=== PATIENT | female | born 2005 | race African-American/Black ===

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

== ENCOUNTER 2023-08-30 10:54 | Emergency (ER) | payer OTHER ==
[2023-08-30 14:20] LABS: MONO NEGATIVE CONTROL ZONE White (Negative) (White); MONO POSITIVE CONTROL Pink Line (Positive) (PINK/RED); Mononucleosis NEGATIVE (NEGATIVE)
[2023-08-30] MEDS ORDERED: Ketorolac Tromethamine 30 MG (1 mL) VIAL ONE (14:31)
[2023-08-30] MEDS ORDERED: Bicillin LA 1.2 MILLION UNITS/2 ML SYRINGE ONE (14:31)
== END 2023-08-30 14:49 | disposition home or self-care (01) ==
LOC: ERS 10:54
DX: J02.9 Acute pharyngitis, unspecified (principal); B97.89 Other viral agents as the cause of diseases classified elsewhere
CPT/HCPCS: 36415; 86308; 87081; 87430; 96372; 99283; J0561; J1885

== ENCOUNTER 2024-11-20 22:18 | Emergency (ER) | payer OTHER ==
[2024-11-20] MEDS ORDERED: Acetaminophen 500 MG TAB ONE (23:31)
== END 2024-11-20 23:34 | disposition home or self-care (01) ==
LOC: ERS 22:18
DX: U07.1 COVID-19 (principal)
CPT/HCPCS: 87428; 99283